=== PATIENT | female | born 1980 | race Hispanic/Latino ===

== ENCOUNTER 2018-08-04 07:58 | Emergency (ER) | payer SELFPAY ==
[~2018-08-04] VITALS: Ht 167.6 cm; Wt 90.7 kg
[2018-08-04] MEDS ORDERED: KETOROLAC TROMETHAMINE 30 MG/ML VIAL IV NR (08:28)
[2018-08-04] MEDS ORDERED: SODIUM CHLORIDE 0.9% 1000ML 1,000 ML IV STA (08:28)
[2018-08-04] MEDS ORDERED: ONDANSETRON HCL INJ 2MG/ML 2ML 2 MG/ML VIAL IV NR (08:28)
[2018-08-04 08:55] LABS: BASOPHILS % 0.4 % (0.0-1.0); EOSINOPHILS # (AUTO) 0.3 (0.0-0.4); EOSINOPHILS % 2.5 % (0.0-6.0); HEMATOCRIT 40.6 % (34.2-44.1); HEMOGLOBIN 13.8 g/dL (12.0-16.0); LYMPHOCYTES # (AUTO) 3.3 (1.0-3.2); LYMPHOCYTES % 31.5 % (18.0-39.1); MEAN CORPUSCULAR HEMOGLOBIN 31.1 pg (28-32); MEAN CORPUSCULAR VOLUME 91.4 fL (81-99); MONOCYTES # (AUTO) 0.5 (0.2-0.8); MONOCYTES % 5.1 % (4.4-11.3); NEUTROPHILS # (AUTO) 6.3 (2.1-6.9); NEUTROPHILS % 60.3 % (38.7-80.0); PLATELET COUNT 301 x10e3/uL (140-360); RED BLOOD COUNT 4.44 x10e6/uL (3.6-5.1)
[2018-08-04 09:12] LABS: CLARITY,URINE CLEAR (CLEAR); COLOR,URINE YELLOW (YELLOW); LEUKOCYTE ESTERASE ,URINE 1+ (NEGATIVE); NITRITE,URINE NEGATIVE (NEGATIVE)
[2018-08-04 09:13] LABS: BILIRUBIN,URINE NEGATIVE (NEGATIVE); EPITHELIAL CELLS,URINE FEW /LPF; KETONES,URINE NEGATIVE (NEGATIVE); PREGNANCY TEST, URINE NEGATIVE (NEGATIVE); PROTEIN,URINE DIPSTICK NEGATIVE (NEGATIVE); URINE UROBILINOGEN 0.2 mg/dL (0.2 - 1); WBC,URINE (MAN) 0-5 /HPF (0-5)
[2018-08-04 09:15] LABS: ALANINE AMINOTRANSFERASE 28 IU/L (0-55); ALBUMIN 3.8 g/dL (3.5-5.0); ALBUMIN/GLOBULIN RATIO 1.2 (0.8-2.0); ALKALINE PHOSPHATASE 91 IU/L (40-150); AMYLASE 36 U/L (25-125); ANION GAP 12.6 mmol/L (8-16); BLOOD UREA NITROGEN 27 mg/dL (7-26); BUN/CREATININE RATIO 36 (6-25); CARBON DIOXIDE 25 mmol/L (22-29); CHLORIDE 107 mmol/L (98-107); CREATININE, SERUM 0.76 mg/dL (0.57-1.11); EST GLOMERULAR FILTRATION RATE > 60 ML/MIN (60-); GLUCOSE 112 mg/dL (74-118); LIPASE 10 U/L (8-78); POTASSIUM 3.6 mmol/L (3.5-5.1); SODIUM 141 mmol/L (136-145)
--- NOTE | 2018-08-04 10:34 | Diagnostic Imaging Report ---
EXAM: CT Abdomen and Pelvis WITH contrast INDICATION: Right lower quadrant abdominal pain. COMPARISON: None. TECHNIQUE: Abdomen and pelvis were scanned utilizing a multidetector helical scanner from the lung base to the pubic symphysis after administration of IV contrast. Coronal and sagittal reformations were obtained. Routine protocol was performed. Scan was performed when during portal venous phase. IV CONTRAST: 100 cc of Isovue 370. ORAL CONTRAST: Water COMPLICATIONS: None RADIATION DOSE: Total DLP: 741.8 mGy*cm CTDIvol has been reviewed. It is below the limits set by the Radiation Protocol Committee (RPC). Dose modulation, iterative reconstruction, and/or weight based adjustment of the mA/kV was utilized to reduce the radiation dose to as low as reasonably achievable. FINDINGS: LINES and TUBES: None. LOWER THORAX: Patchy dependent atelectasis. Calcified granuloma at the left lung base. HEPATOBILIARY: No evidence of focal lesion. There is mild intra- and extra- hepatic biliary dilation likely post cholecystectomy reservoir effect. SPLEEN: No splenomegaly. PANCREAS: No focal masses or ductal dilatation. ADRENALS: No adrenal nodules. KIDNEYS/URETERS: Kidneys enhance symmetrically. No evidence of hydronephrosis, solid mass, or stone. GI TRACT: No evidence of wall thickening or distension. Appendix is normal. PELVIC ORGANS/BLADDER: Unremarkable. There are calcified phleboliths in the pelvis. LYMPH NODES: No lymphadenopathy. VESSELS: Unremarkable. PERITONEUM / RETROPERITONEUM: No free air or fluid. BONES AND SOFT TISSUES: Unremarkable. CONCLUSION: No acute CT abnormality in the abdomen or pelvis. Normal appendix. Signed by: Dr. Juanjose Bermeo MD on 08/04/2018 10:30 AM
[2018-08-04] MEDS ORDERED: IOPAMIDOL 370 MG/ML 200 ML INFUS..BTL INJ ONE (13:07)
[2018-08-04] MEDS ORDERED: SODIUM CHLORIDE 0.9% 50ML 50 ML ONE (13:07)
--- NOTE | 2018-08-04 13:08 | Diagnostic Imaging Report ---
Exam: Pelvic ultrasound with doppler History: Right greater than left pelvic pain. Query torsion. Comparison: CT abdomen/pelvis 08/04/2018. Findings: Transabdominal and endovaginal sonographic evaluation of the pelvis. The uterus measures 8.3 x 3.3 x 4.5 cm and is unremarkable in appearance. The endometrial stripe measures 0.5 cm. Incidental Nabothian cysts. The right adnexal structure labelled as the ovary measures 3.0 x 1.8 x 2.8 cm. No Doppler flow is demonstrated in the structure. There is surrounding Doppler flow. No evidence of cystic lesion. The left ovary measures 3.5 x 2.0 x 2.1 cm. Doppler flow is demonstrated. Follicular cysts are noted. No free fluid in the pelvis. Impression: A 3.0 cm solid right adnexal structure may represent the ovary and demonstrates no arterial Doppler flow. However flow is seen surrounding this structure. This may represent ovarian torsion, particularly in the setting of acute pain. There is no surrounding free fluid which is somewhat atypical but can be seen in a minority of torsion cases. Correlation with clinical exam is suggested and gynecologic consult is recommended. The above findings were discussed with Dr. Brooks on 08/04/2018 at 1:03 PM, who responded indicating that the communication was understood. Signed by: Dr. Juanjose Bermeo MD on 08/04/2018 1:04 PM
--- NOTE | 2018-08-04 13:43 | NUR ---
RADIOLOGY CALLED. WILL BRING RADIOLOGY RESULTS ON DISC FOR TRANSFER
--- NOTE | 2018-08-04 13:53 | NUR ---
REPORT CALLED TO NIECY GRAHAM AT [facility] FOR ER-ER [place]. [phone] [place] CTR. CONNECTED.
--- NOTE | 2018-08-04 13:56 | NUR ---
[facility] CALLED FOR TRANSFER TO [facility]. ETA 45 MIN
--- NOTE | 2018-08-04 15:05 | NUR ---
[facility] HERE TO TX PT TO [facility] [place]
== END 2018-08-04 15:20 | disposition other institution (70) ==
LOC: ER 07:58
DX: R10.31 Right lower quadrant pain (principal); R11.0 Nausea; N83.511 Torsion of right ovary and ovarian pedicle
CPT/HCPCS: 36415; 74177; 76830; 80053; 81001; 81025; 82150; 83605; 83690; 85025; 87086; 93976; 99284; J1885; J2405; J7030; Q9967